=== PATIENT | female | born 1950 | race Caucasian/White ===

== ENCOUNTER 2016-05-24 08:53 | Day surgery (SDC) | payer MEDICARE, BC ==
[2016-05-24 10:31] VITALS: RESP 20; TEMP 97; O2SAT 100
[2016-05-24 10:32] VITALS: BP 158/86; PULSE 55
== END 2016-05-24 10:42 | disposition home or self-care (01) | DRG 951 ==
LOC: SURG 08:53
PROVIDERS: ATTEND Surgery
DX: Z12.11 Encounter for screening for malignant neoplasm of colon (principal); K57.30 Diverticulosis of large intestine without perforation or abscess without bleeding
CPT/HCPCS: J2001; J2704

== ENCOUNTER 2016-12-21 10:06 | Emergency (ER) | payer MEDICARE, BC ==
[2016-12-21 10:22] VITALS: RESP 20
[2016-12-21 10:40] VITALS: O2SAT 97
[2016-12-21] MEDS ORDERED: KETOROLAC TROMETHAMINE 30 MG/ML SOL IM ONE (10:52)
[2016-12-21] MEDS ORDERED: SODIUM CHLORIDE 0.9% 1000ML 1,000 ML IV ONE (10:52)
[2016-12-21 11:19] LABS: BASOPHILS % (AUTO) 0 % (0-3); EOSINOPHILS % (AUTO) 0 % (0-9); HEMATOCRIT 44 % (35-47); MEAN CORPUSCULAR HGB CONC 34.3 gm/dl (32.0-36.0); MEAN CORPUSCULAR VOLUME 85 fL (81-99); MONOCYTES % (AUTO) 7.3 % (0-12); NEUTROPHILS % (AUTO) 84.2 % (37-80)
[2016-12-21] MEDS ORDERED: KETOROLAC TROMETHAMINE 30 MG/ML SOL ONE (11:21)
[2016-12-21] MEDS ORDERED: KETOROLAC TROMETHAMINE 30 MG/ML SOL IV ONE (11:21)
[2016-12-21 11:27] LABS: APPEARANCE,URINE Clear; BILIRUBIN,URINE NEGATIVE (NEGATIVE); COLOR,URINE Yellow; GLUCOSE, URINE (UA) NEGATIVE (NEGATIVE); KETONES,URINE 1+ (NEGATIVE); LEUKOCYTE ESTERASE ,URINE NEGATIVE (NEGATIVE); NITRATE,URINE NEGATIVE (NEGATIVE); OCCULT BLOOD,URINE TRACE INTACT (NEG-TRACE); PH,URINE 6.5; UROBILINOGEN,URINE 0.2 (0.2-1.0 EU)
[2016-12-21 11:40] LABS: ALBUMIN 3.9 gm/dl (3.4-5.0); CALCIUM 9.7 mg/dl (8.5-10.1); POTASSIUM 3.4 mMol/L (3.5-5.1)
[2016-12-21 13:16] VITALS: BP 158/90; PULSE 71; TEMP 98.2
== END 2016-12-21 13:05 | disposition home or self-care (01) | DRG 392 ==
LOC: ED 10:06
DX: K52.9 Noninfective gastroenteritis and colitis, unspecified (principal)
CPT/HCPCS: 36415; 74020; 80053; 81001; 85025; 99284; J1885

== ENCOUNTER 2017-05-14 07:04 | Emergency (ER) | payer MEDICARE, BC ==
[2017-05-14 07:48] LABS: ALBUMIN 3.7 gm/dl (3.4-5.0); POTASSIUM 3.5 mMol/L (3.5-5.1)
[2017-05-14 07:59] LABS: BASOPHILS % (AUTO) 0 % (0-3); EOSINOPHILS % (AUTO) 0 % (0-9); HEMATOCRIT 39 % (35-47); MEAN CORPUSCULAR HGB CONC 35.4 gm/dl (32.0-36.0); MEAN CORPUSCULAR VOLUME 85 fL (81-99); MONOCYTES % (AUTO) 4.9 % (0-12); NEUTROPHILS % (AUTO) 84.7 % (37-80)
[2017-05-14] MEDS ORDERED: SODIUM CHLORIDE 0.9% FLUSH 10 ML SOL IV PRN (08:02)
[2017-05-14] MEDS ORDERED: HYDROMORPHONE 1 MG/ML SYRINGE IV ONE (08:05)
[2017-05-14] MEDS ORDERED: ONDANSETRON HCL 4 MG/2 ML SOL IV ONE (08:05)
[2017-05-14] MEDS ORDERED: HYDROMORPHONE 1 MG/ML SYRINGE ONE (08:10)
[2017-05-14] MEDS ORDERED: ONDANSETRON HCL 4 MG/2 ML SOL ONE (08:10)
[2017-05-14 08:32] VITALS: TEMP 96.4
[2017-05-14 08:32] LABS: APPEARANCE,URINE Slightly Cloudy; BILIRUBIN,URINE NEGATIVE (NEGATIVE); COLOR,URINE Yellow; GLUCOSE, URINE (UA) NEGATIVE (NEGATIVE); KETONES,URINE NEGATIVE (NEGATIVE); LEUKOCYTE ESTERASE ,URINE NEGATIVE (NEGATIVE); NITRATE,URINE NEGATIVE (NEGATIVE); OCCULT BLOOD,URINE NEGATIVE (NEG-TRACE); UROBILINOGEN,URINE 0.2 (0.2-1.0 EU)
[2017-05-14 08:54] LABS: RBC,URINE NEG (0-3AV/HPF); WBC,URINE 0-1 (0-5AV/HPF)
[2017-05-14 10:58] VITALS: PULSE 68
[2017-05-14 10:59] VITALS: BP 120/82; RESP 16; O2SAT 95
== END 2017-05-14 10:29 | disposition home or self-care (01) | DRG 446 ==
LOC: ED 07:04
DX: K80.50 Calculus of bile duct without cholangitis or cholecystitis without obstruction (principal)
CPT/HCPCS: 36415; 74177; 80053; 81001; 85025; 96374; 96375; 99284; 99285; J2405; Q9967; J1170

== ENCOUNTER 2017-06-01 06:57 | Day surgery (SDC) | payer MEDICARE, BC ==
[2017-06-01] MEDS ORDERED: SUCCINYLCHOLINE CHLORIDE 20 MG/ML SOL IV ONE (07:03)
[2017-06-01] MEDS ORDERED: ROCURONIUM BROMIDE 10 MG/ML SOL IV ONE (07:03)
[2017-06-01] MEDS ORDERED: FENTANYL 100MCG/2ML SOL ONE ×2 (07:06→08:11)
[2017-06-01] MEDS ORDERED: LIDOCAINE HCL 1% MPF SOL ONE (07:06)
[2017-06-01] MEDS ORDERED: PROPOFOL 10 MG/ML EMU IV ONE (07:06)
[2017-06-01] MEDS ORDERED: CEFAZOLIN SODIUM 1 GM PDS ONE ×2 (07:50→08:20)
[2017-06-01] MEDS: BUPIVACAINE/EPI 0.5% 10 ML SOL INFIL ONE (08:08)
[2017-06-01] MEDS ORDERED: GLYCOPYRROLATE 0.2 MG/ML SOL ONE (08:21)
[2017-06-01] MEDS ORDERED: EPHEDRINE SULFATE 50 MG/ML SOL ONE (08:21)
[2017-06-01] MEDS ORDERED: NEOSTIGMINE METHYLSULFATE 1 MG/ML SOL ONE (08:21)
[2017-06-01] MEDS: KETOROLAC TROMETHAMINE 30 MG/ML SOL ONE (08:52)
[2017-06-01 09:26] VITALS: RESP 16
[2017-06-01 09:41] VITALS: TEMP 98
[2017-06-01 10:19] VITALS: BP 118/77; PULSE 60; O2SAT 98
== END 2017-06-01 11:01 | disposition home or self-care (01) | DRG 446 ==
LOC: SURG 06:57
PROVIDERS: ATTEND Surgery
DX: K80.10 Calculus of gallbladder with chronic cholecystitis without obstruction (principal)
CPT/HCPCS: J0330; J0690; J1885; J2710; J3010; J7643; J2001; J2704; J3490

== ENCOUNTER 2017-10-03 07:06 | Emergency (ER) | payer MEDICARE, BC ==
[2017-10-03] MEDS ORDERED: METOPROLOL TARTRATE 5 MG/5 ML SOL IV ONE (07:16)
[2017-10-03] MEDS ORDERED: ASPIRIN 81 MG CHEWABLE CTB PO STA (07:20)
[2017-10-03] MEDS ORDERED: SODIUM CHLORIDE 0.9% FLUSH 10 ML SOL IV PRN (07:20)
[2017-10-03] MEDS ORDERED: NITROGLYCERIN 0.4 MG TAB SL PRN (07:20)
[2017-10-03] MEDS ORDERED: VERAPAMIL HYDROCHLORIDE IV ONE ×3 (07:24→07:27)
[2017-10-03] MEDS ORDERED: KETOROLAC TROMETHAMINE 30 MG/ML SOL IV ONE (07:28)
[2017-10-03] MEDS ORDERED: METOPROLOL TARTRATE 5 MG/5 ML SOL IV SCH (07:30)
[2017-10-03] MEDS ORDERED: KETOROLAC TROMETHAMINE 30 MG/ML SOL ONE (07:32)
[2017-10-03 07:37] LABS: CALCIUM 9.2 mg/dl (8.5-10.1); CARBON DIOXIDE 26.6 mEq/L (21-32); CREATININE 0.58 mg/dl (0.60-1.00); POTASSIUM 3.9 mMol/L (3.5-5.1); TROP I 0.041 ng/ml (0.000-0.056)
[2017-10-03] MEDS ORDERED: SODIUM CHLORIDE 0.9% 1000 ML SOL IV SCH (08:00)
[2017-10-03] MEDS ORDERED: SODIUM CHLORIDE 0.9% 500 ML SOL IV SCH (08:30)
[2017-10-03 08:47] LABS: HEMATOCRIT 45 % (35-47); MEAN CORPUSCULAR HEMOGLOBIN 29.9 pg (27.0-32.0); MEAN CORPUSCULAR HGB CONC 33.5 gm/dl (32.0-36.0); MEAN CORPUSCULAR VOLUME 89 fL (81-99)
[2017-10-03] MEDS ORDERED: DILTIAZEM ER 120 MG C24 ONE (09:52)
[2017-10-03] MEDS ORDERED: DILTIAZEM ER 120 MG C24 PO SCH (10:00)
[2017-10-03] MEDS ORDERED: METOPROLOL SUCCINATE 50 MG ER TAB PO SCH (10:45)
[2017-10-03] MEDS ORDERED: METOPROLOL SUCCINATE 50 MG ER TAB ONE (10:46)
[2017-10-03] MEDS ORDERED: DILTIAZEM 5 MG/ML SOL IV ONE (11:18)
[2017-10-03] MEDS ORDERED: DILTIAZEM 5 MG/ML 125 MG in SODIUM CHLORIDE 0.9% 100 ML 100 ML IV SCH (11:30)
[2017-10-03 11:57] VITALS: TEMP 96.4
[2017-10-03 12:13] VITALS: PULSE 109; RESP 16
[2017-10-03 13:31] VITALS: BP 132/88; O2SAT 96
== END 2017-10-03 12:50 | disposition short-term general hospital (02) | DRG 310 ==
LOC: ED 07:06
DX: I48.91 Unspecified atrial fibrillation (principal)
CPT/HCPCS: 36415; 71045; 80048; 82550; 84484; 85025; 93005; 96365; 96366; 96374; 96375; 99284; 99285; J1885; A9270-GY; J3490

== ENCOUNTER 2017-10-31 04:42 | Inpatient (IN) | payer MEDICARE, BC ==
[2017-10-31] MEDS ORDERED: ASPIRIN 81 MG CHEWABLE CTB PO STA (04:57)
[2017-10-31] MEDS ORDERED: NITROGLYCERIN 0.4 MG TAB SL PRN (04:57)
[2017-10-31] MEDS ORDERED: METOPROLOL TARTRATE 25 MG TAB PO ONE (05:03)
[2017-10-31] MEDS ORDERED: METOPROLOL TARTRATE 25 MG TAB ONE (05:04)
[2017-10-31 05:15] LABS: BASOPHILS % (AUTO) 1 % (0-3); EOSINOPHILS % (AUTO) 4 % (0-9); HEMATOCRIT 44 % (35-47); HEMOGLOBIN 14.8 gm/dl (12.0-15.5); LYMPHOCYTES % (AUTO) 30.9 % (10-50); MEAN CORPUSCULAR HGB CONC 33.4 gm/dl (32.0-36.0); MEAN CORPUSCULAR VOLUME 87 fL (81-99); MONOCYTES % (AUTO) 13.1 % (0-12)
[2017-10-31 05:30] LABS: BLOOD UREA NITROGEN 8 mg/dl (7-18); CALCIUM 9.2 mg/dl (8.5-10.1); CARBON DIOXIDE 27.3 mEq/L (21-32); CHLORIDE 102 mMol/L (98-107); GLUCOSE 111 mg/dl (74-106); POTASSIUM 3.7 mMol/L (3.5-5.1); SODIUM 137 mMol/L (136-145); TROP I < 0.017 ng/ml (0.000-0.056)
[2017-10-31 05:36] LABS: INR 1.04 (0.86-1.12)
[2017-10-31] MEDS ORDERED: METOPROLOL TARTRATE 5 MG/5 ML SOL IV ONE ×4 (05:47→06:40)
[2017-10-31] MEDS: SODIUM CHLORIDE 0.9% FLUSH 10 ML SOL IV PRN ×2 (05:54→06:46)
[2017-10-31] MEDS ORDERED: SODIUM CHLORIDE 0.9% 1000ML 1,000 ML IV ONE ×2 (06:02→08:05)
[2017-10-31] MEDS ORDERED: DILTIAZEM 5 MG/ML SOL IV ONE ×2 (06:08→06:19)
[2017-10-31] MEDS ORDERED: AMIODARONE 50 MG/ML SOL IVP ONE ×2 (06:36→07:52)
[2017-10-31] MEDS ORDERED: AMIODARONE 50 MG/ML SOL ONE ×2 (08:10→08:12)
[2017-10-31] MEDS ORDERED: AMIODARONE IV ONE (08:24)
[2017-10-31] MEDS ORDERED: DEXTROSE IV ONE (08:24)
[2017-10-31] MEDS ORDERED: AMIODARONE 50 MG/ML 450 MG in DEXTROSE 250 ML 250 ML IV ONE (08:25)
[2017-10-31] MEDS ORDERED: METOPROLOL TARTRATE 50 MG TAB PO SCH ×2 (11:15→14:30)
[2017-10-31] MEDS ORDERED: TRAMADOL HYDROCHLORIDE 50 MG TAB PO ONE (12:23)
[2017-10-31] MEDS ORDERED: TRAMADOL HYDROCHLORIDE 50 MG TAB ONE (12:26)
[2017-10-31] MEDS ORDERED: TRAMADOL HYDROCHLORIDE 50 MG TAB PO PRN (13:33)
[2017-10-31] MEDS: ACETAMINOPHEN 325 MG PO PRN ×2 (16:19→21:38)
[2017-10-31] MEDS ORDERED: AMIODARONE 50 MG/ML 600 MG in DEXTROSE 250 ML 250 ML IV ONE (16:30)
[2017-10-31 16:33] VITALS: RESP 18
[2017-10-31] MEDS ORDERED: GABAPENTIN 300 MG CAP PO SCH (21:00)
[2017-10-31] MEDS ORDERED: LOSARTAN POTASSIUM 50 MG TAB PO SCH (21:00)
[2017-10-31] MEDS ORDERED: ASPIRIN 81 MG CHEWABLE CTB PO SCH (21:00)
[2017-10-31] MEDS ORDERED: SIMVASTATIN 20 MG TAB PO SCH (21:00)
[2017-10-31] MEDS: METOPROLOL SUCCINATE 50 MG ER TAB PO SCH (21:38)
[2017-11-01] MEDS ORDERED: LEVOTHYROXINE SODIUM 112 MCG TAB PO SCH (07:00)
[2017-11-01] MEDS ORDERED: LEVOTHYROXINE SODIUM 50 MCG TAB PO SCH ×2 (07:00)
[2017-11-01 07:45] LABS: CALCIUM 8.7 mg/dl (8.5-10.1); CARBON DIOXIDE 26.9 mEq/L (21-32); CREATININE 0.59 mg/dl (0.60-1.00); POTASSIUM 3.7 mMol/L (3.5-5.1)
[2017-11-01] MEDS: ACETAMINOPHEN 325 MG PO PRN (08:10)
[2017-11-01 08:44] VITALS: BP 150/89; PULSE 64; TEMP 98.6; O2SAT 98
[2017-11-01] MEDS: METOPROLOL SUCCINATE 50 MG ER TAB PO SCH (08:50)
[2017-11-01] MEDS ORDERED: RIVAROXABAN 10 MG TAB PO SCH (09:00)
[2017-11-01] MEDS ORDERED: FOLIC PO SCH (09:00)
[2017-11-01] MEDS ORDERED: DOCUSATE SODIUM 100 MG SGL PO SCH (09:00)
[2017-11-01] MEDS ORDERED: CHOLECALCIFEROL 1,000 IU TAB PO SCH (09:00)
[2017-11-01] MEDS ORDERED: MAGNESIUM OXIDE 400 MG TAB PO SCH (09:00)
[2017-11-01] MEDS ORDERED: UBIDECARENONE 100 MG CAPSULE PO SCH (09:00)
[2017-11-01] MEDS ORDERED: IRON PO SCH (09:00)
[2017-11-01] MEDS ORDERED: [UNRECOGNIZED DRUG - OTHER] PO SCH (09:00)
[2017-11-01] MEDS ORDERED: LUTEIN PO SCH (09:00)
[2017-11-01] MEDS ORDERED: MULTIVITAMIN2 1 EA TAB PO SCH (09:00)
[2017-11-01] MEDS ORDERED: MULTIVIT MIN PO SCH (09:00)
[2017-11-01] MEDS ORDERED: GABAPENTIN 300 MG CAP PO SCH (09:00)
[2017-11-01] MEDS ORDERED: PNEUMOC 13-VAL CONJ-DIP CRM/PF 0.5 ML SYRINGE IM ONE (10:45)
[2017-11-02] MEDS ORDERED: LEVOTHYROXINE SODIUM 112 MCG TAB PO SCH (07:00)
== END 2017-11-01 11:15 | disposition home or self-care (01) | DRG 310 ==
LOC: ED 04:42 → ACUTE CARE 13:02
PROVIDERS: ADMIT Family Medicine; ATTEND Family Medicine
DX: I48.91 Unspecified atrial fibrillation (principal); I10 Essential (primary) hypertension
CPT/HCPCS: 36415; 80048; 84443; 84484; 85025; 85610; 85730; 90670; 93005; 93012; 96365; 96366; 96374; 96375; 99070; 99285; 99291; J0282; A9270-GY; G0008; J3490